=== PATIENT | female | born 1955 | race Caucasian/White ===

== ENCOUNTER 2022-02-04 18:30 | Inpatient (IN) | payer MEDICARE, OTHER ==
[~2022-02-04] VITALS: Ht 170.2 cm; Wt 56.8 kg
[2022-02-05 01:31] LABS: EOSINOPHILS % 3.6 % (0.0-5.0); HEMATOCRIT. 33.1 % (36.0-48.0); HEMOGLOBIN. 11.5 g/dL (12.0-16.0); LYMPHOCYTES % 19.9 % (20.0-50.0); MEAN CORPUSCULAR HEMOGLOBIN 31.5 pg (28.0-32.0); MEAN CORPUSCULAR VOLUME 90.7 fL (81.0-99.0); MEAN PLATELET VOLUME 6.6 fl (7.4-10.4); NEUTROPHILS % 70.5 % (40.0-76.0); PLATELET 231 x1000/uL (130-400); RED BLOOD CELL COUNT 3.65 mill/uL (4.2-5.4)
[2022-02-05 01:35] LABS: CHLORIDE 99 mEq/L (98-107)
[2022-02-05 01:39] LABS: INR 1.2; PROTHROMBIN TIME 13.1 sec (9.6-11.0)
[2022-02-05] MEDS ORDERED: POTASSIUM CHLORIDE 20MEQ TABLET SR PO ONE (02:00)
[2022-02-05] MEDS ORDERED: CIPROFLOXACIN 0.3% OPHTH SOLN 2.5ML BOTHEYE STA (04:33)
[2022-02-05 04:48] LABS: CLARITY URINE CLEAR (CLEAR); COLOR URINE YELLOW (YELLOW); KETONES URINE NEGATIVE (NEGATIVE); LEUKOCYTE ESTERASE URINE 2+ (NEGATIVE); NITRITE URINE NEGATIVE (NEGATIVE); OCCULT BLOOD URINE NEGATIVE (NEGATIVE); PROTEIN URINE NEGATIVE (NEGATIVE); SPECIFIC GRAVITY URINE 1.009 (1.005-1.030)
[2022-02-05 08:50] VITALS: BP 136/91
[2022-02-05 12:00] VITALS: BP 128/80
[2022-02-05] MEDS ORDERED: ONDANSETRON HCL 4MG/2ML INJ IV PRN (12:00)
[2022-02-05 12:26] LABS: *AMPHETAMINES SCREEN URINE NEGATIVE (NEGATIVE); *BARBITURATES SCREEN URINE NEGATIVE (NEGATIVE); *BENZODIAZEPINES SCREEN URINE NEGATIVE (NEGATIVE); *COCAINE SCREEN URINE PRESUMTIVE POSITIVE (NEGATIVE); CANNABINOID URINE SCREEN NEGATIVE (NEGATIVE); METHADONE URINE SCREEN NEGATIVE (NEGATIVE); OPIATES URINE SCREEN NEGATIVE (NEGATIVE); PHENCYCLIDINE URINE SCREEN NEGATIVE (NEGATIVE)
[2022-02-05] MEDS: ENOXAPARIN 40MG/0.4ML SYR SUBCUT SCH (12:45)
[2022-02-05 17:00] LABS: HEPATITIS B SURFACE ANTIGEN NEGATIVE
[2022-02-05 20:00] VITALS: BP 130/89
[2022-02-05] MEDS: IPRATROPIUM/ALBUTEROL 0.5-3(2.5)MG/3ML NEB HHN SCH ×2 (20:04→23:25)
[2022-02-05] MEDS: CEFTRIAXONE 1,000 MG in DEXTROSE 5% WATER 50 ML IV SCH (20:41)
[2022-02-06] VITALS: BP 156/89
[2022-02-06 04:00] VITALS: BP 147/84
[2022-02-06] MEDS: IPRATROPIUM/ALBUTEROL 0.5-3(2.5)MG/3ML NEB HHN SCH ×5 (04:00→21:30)
[2022-02-06 06:07] LABS: HIV SCREEN 4G Non Reactive (Non Reactive)
[2022-02-06 08:00] VITALS: BP 103/59
[2022-02-06 08:29] LABS: BASOPHILS % 0.3 % (0.0-2.0); EOSINOPHILS % 0.5 % (0.0-5.0); HEMATOCRIT. 31.5 % (36.0-48.0); HEMOGLOBIN. 10.9 g/dL (12.0-16.0); LYMPHOCYTES % 11.2 % (20.0-50.0); MEAN CORPUSCULAR HEMOGLOBIN 31.4 pg (28.0-32.0); MEAN CORPUSCULAR VOLUME 90.9 fL (81.0-99.0); MEAN PLATELET VOLUME 6.9 fl (7.4-10.4); MONOCYTES % 2.4 % (2.0-8.0); NEUTROPHILS % 85.6 % (40.0-76.0); PLATELET 218 x1000/uL (130-400); RED BLOOD CELL COUNT 3.47 mill/uL (4.2-5.4); RED CELL DISTRIBUTION WIDTH 15.9 % (11.6-14.6)
[2022-02-06 08:40] LABS: CHLORIDE 99 mEq/L (98-107)
[2022-02-06 12:00] VITALS: BP 123/71
[2022-02-06] MEDS: ENOXAPARIN 40MG/0.4ML SYR SUBCUT SCH (13:28)
[2022-02-06 16:00] VITALS: BP 118/84
[2022-02-06] MEDS: CEFTRIAXONE 1,000 MG in DEXTROSE 5% WATER 50 ML IV SCH (18:35)
[2022-02-06 20:00] VITALS: BP 127/89
[2022-02-07] VITALS: BP 104/73
[2022-02-07] MEDS: IPRATROPIUM/ALBUTEROL 0.5-3(2.5)MG/3ML NEB HHN SCH ×6 (01:38→21:19)
[2022-02-07 04:00] VITALS: BP 94/63
[2022-02-07 08:00] VITALS: BP 116/60
[2022-02-07] MEDS: ENOXAPARIN 40MG/0.4ML SYR SUBCUT SCH (11:48)
[2022-02-07 12:00] VITALS: BP 118/79
[2022-02-07 16:00] VITALS: BP 129/87
[2022-02-07] MEDS: CEFTRIAXONE 1,000 MG in DEXTROSE 5% WATER 50 ML IV SCH (17:38)
[2022-02-07 20:00] VITALS: BP 115/59
[2022-02-08] VITALS: BP 114/50
[2022-02-08 04:00] VITALS: BP 115/59
[2022-02-08] MEDS: IPRATROPIUM/ALBUTEROL 0.5-3(2.5)MG/3ML NEB HHN SCH ×6 (04:00→20:00)
[2022-02-08 08:00] VITALS: BP 116/61
[2022-02-08] MEDS: CEFTRIAXONE 2 G in DEXTROSE 5% WATER 50 ML IV SCH (11:00)
[2022-02-08 12:00] VITALS: BP 114/67
[2022-02-08] MEDS: ENOXAPARIN 40MG/0.4ML SYR SUBCUT SCH (12:00)
[2022-02-08] MEDS ORDERED: LIDOCAINE HCL 1% 30ML VIAL (10MG/ML) ONE (14:12)
[2022-02-08 16:00] VITALS: BP 111/65
[2022-02-08 20:00] VITALS: BP 141/83
[2022-02-09] VITALS: BP 140/80
[2022-02-09 04:00] VITALS: BP 138/75
[2022-02-09] MEDS: IPRATROPIUM/ALBUTEROL 0.5-3(2.5)MG/3ML NEB HHN SCH ×4 (04:00→21:18)
[2022-02-09 08:00] VITALS: BP 117/78
[2022-02-09] MEDS: CEFTRIAXONE 2 G in DEXTROSE 5% WATER 50 ML IV SCH (09:03)
[2022-02-09] MEDS: ACETAMINOPHEN 325MG TABLET PO PRN ×2 (09:03→20:37)
[2022-02-09 12:00] VITALS: BP 112/77
[2022-02-09] MEDS: ENOXAPARIN 40MG/0.4ML SYR SUBCUT SCH (12:19)
[2022-02-09 16:00] VITALS: BP 125/89
[2022-02-09 20:00] VITALS: BP 124/87
[2022-02-10] VITALS: BP 115/59
[2022-02-10 04:00] VITALS: BP 117/60
[2022-02-10 04:07] LABS: NEISSERIA GONORRHOEAE NAA Negative (Negative)
[2022-02-10] MEDS: IPRATROPIUM/ALBUTEROL 0.5-3(2.5)MG/3ML NEB HHN SCH ×6 (04:24→21:22)
[2022-02-10 07:03] LABS: BASOPHILS % 1.2 % (0.0-2.0); EOSINOPHILS % 2.2 % (0.0-5.0); HEMATOCRIT. 32.2 % (36.0-48.0); HEMOGLOBIN. 11.3 g/dL (12.0-16.0); LYMPHOCYTES % 29.6 % (20.0-50.0); MEAN CORPUSCULAR HEMOGLOBIN 31.9 pg (28.0-32.0); MEAN CORPUSCULAR VOLUME 90.8 fL (81.0-99.0); MEAN PLATELET VOLUME 7.2 fl (7.4-10.4); MONOCYTES % 9.2 % (2.0-8.0); NEUTROPHILS % 57.8 % (40.0-76.0); PLATELET 176 x1000/uL (130-400); RED BLOOD CELL COUNT 3.55 mill/uL (4.2-5.4)
[2022-02-10 07:18] LABS: CHLORIDE 100 mEq/L (98-107)
[2022-02-10 08:00] VITALS: BP 114/76
[2022-02-10] MEDS: CEFTRIAXONE 2 G in DEXTROSE 5% WATER 50 ML IV SCH (10:16)
[2022-02-10 12:00] VITALS: BP 120/76
[2022-02-10] MEDS: ENOXAPARIN 40MG/0.4ML SYR SUBCUT SCH (15:40)
[2022-02-10 16:00] VITALS: BP 117/76
[2022-02-10 20:44] VITALS: BP 115/86
[2022-02-11 00:21] VITALS: BP 121/76
[2022-02-11] MEDS: IPRATROPIUM/ALBUTEROL 0.5-3(2.5)MG/3ML NEB HHN SCH ×6 (01:53→21:10)
[2022-02-11 04:00] VITALS: BP 117/78
[2022-02-11 08:00] VITALS: BP 118/55
[2022-02-11] MEDS: CEFTRIAXONE 2 G in DEXTROSE 5% WATER 50 ML IV SCH (09:00)
[2022-02-11 12:00] VITALS: BP 121/84
[2022-02-11] MEDS: ENOXAPARIN 40MG/0.4ML SYR SUBCUT SCH (12:00)
[2022-02-11 16:00] VITALS: BP 123/89
[2022-02-11 20:00] VITALS: BP 106/56
[2022-02-11] MEDS: ACETAMINOPHEN 325MG TABLET PO PRN (20:51)
[2022-02-12 04:00] VITALS: BP 105/55
[2022-02-12] MEDS: IPRATROPIUM/ALBUTEROL 0.5-3(2.5)MG/3ML NEB HHN SCH ×6 (04:00→20:33)
[2022-02-12 08:00] VITALS: BP 108/74
[2022-02-12] MEDS: CEFTRIAXONE 2 G in DEXTROSE 5% WATER 50 ML IV SCH (10:21)
[2022-02-12 12:00] VITALS: BP 108/63
[2022-02-12] MEDS: ENOXAPARIN 40MG/0.4ML SYR SUBCUT SCH (13:13)
[2022-02-12 16:00] VITALS: BP 9/56
[2022-02-12] MEDS ORDERED: NALOXONE HCL 0.4MG/ML VIAL IV PRN (16:15)
[2022-02-12] MEDS: HYDROCODONE/ACETAMINOPHEN 5/325MG TABLET PO PRN (16:42)
[2022-02-12 20:00] VITALS: BP 118/98
[2022-02-13] VITALS: BP 120/66
[2022-02-13] MEDS: IPRATROPIUM/ALBUTEROL 0.5-3(2.5)MG/3ML NEB HHN SCH ×6 (00:03→21:41)
[2022-02-13] MEDS: HYDROCODONE/ACETAMINOPHEN 5/325MG TABLET PO PRN ×2 (00:17→19:38)
[2022-02-13 04:00] VITALS: BP 100/66
[2022-02-13 08:00] VITALS: BP 116/83
[2022-02-13] MEDS: CEFTRIAXONE 2 G in DEXTROSE 5% WATER 50 ML IV SCH (08:57)
[2022-02-13] MEDS: ENOXAPARIN 40MG/0.4ML SYR SUBCUT SCH (11:49)
[2022-02-13 12:00] VITALS: BP 94/63
[2022-02-13 16:00] VITALS: BP 110/65
[2022-02-13 20:00] VITALS: BP 118/73
[2022-02-14] VITALS: BP 112/62
[2022-02-14 05:42] VITALS: BP 115/76
[2022-02-14] MEDS: HYDROCODONE/ACETAMINOPHEN 5/325MG TABLET PO PRN ×3 (06:10→21:28)
[2022-02-14 08:00] VITALS: BP 118/68
[2022-02-14] MEDS: IPRATROPIUM/ALBUTEROL 0.5-3(2.5)MG/3ML NEB HHN SCH ×4 (09:00→20:48)
[2022-02-14] MEDS: CEFTRIAXONE 2 G in DEXTROSE 5% WATER 50 ML IV SCH (10:53)
[2022-02-14] MEDS: ENOXAPARIN 40MG/0.4ML SYR SUBCUT SCH (10:54)
[2022-02-14 12:00] VITALS: BP 111/62
[2022-02-14 20:00] VITALS: BP 122/80
[2022-02-14 23:51] VITALS: BP 119/68
[2022-02-15] MEDS: IPRATROPIUM/ALBUTEROL 0.5-3(2.5)MG/3ML NEB HHN SCH ×6 (03:52→21:55)
[2022-02-15 04:00] VITALS: BP 114/76
[2022-02-15 08:00] VITALS: BP 113/74
[2022-02-15] MEDS: CEFTRIAXONE 2 G in DEXTROSE 5% WATER 50 ML IV SCH (10:56)
[2022-02-15] MEDS: ENOXAPARIN 40MG/0.4ML SYR SUBCUT SCH ×2 (10:59→12:11)
[2022-02-15 12:00] VITALS: BP 111/69
[2022-02-15 16:00] VITALS: BP 115/72
[2022-02-15 20:00] VITALS: BP 117/57
[2022-02-16] VITALS: BP 112/67
[2022-02-16] MEDS: IPRATROPIUM/ALBUTEROL 0.5-3(2.5)MG/3ML NEB HHN SCH ×5 (01:03→20:01)
[2022-02-16] MEDS: HYDROCODONE/ACETAMINOPHEN 5/325MG TABLET PO PRN ×3 (02:28→21:59)
[2022-02-16 04:00] VITALS: BP 118/66
[2022-02-16 06:55] LABS: CHLORIDE 99 mEq/L (98-107)
[2022-02-16 08:00] VITALS: BP 122/77
[2022-02-16 12:00] VITALS: BP_SYST 107; BP_SYST 77; BP_DIAS 44; BP_DIAS 55
[2022-02-16] MEDS: CEFTRIAXONE 2 G in DEXTROSE 5% WATER 50 ML IV SCH (12:50)
[2022-02-16 16:00] VITALS: BP 125/80
[2022-02-16 20:00] VITALS: BP 126/79
[2022-02-17] VITALS: BP 104/77
[2022-02-17] MEDS: IPRATROPIUM/ALBUTEROL 0.5-3(2.5)MG/3ML NEB HHN SCH ×5 (00:02→21:16)
[2022-02-17 04:00] VITALS: BP 114/82
[2022-02-17 08:00] VITALS: BP 126/88
[2022-02-17 12:00] VITALS: BP 106/75
[2022-02-17] MEDS: ENOXAPARIN 40MG/0.4ML SYR SUBCUT SCH (12:00)
[2022-02-17] MEDS: CEFTRIAXONE 2 G in DEXTROSE 5% WATER 50 ML IV SCH (13:41)
[2022-02-17 16:00] VITALS: BP 116/82
[2022-02-17 20:00] VITALS: BP 109/73
[2022-02-17] MEDS: ACETAMINOPHEN 325MG TABLET PO PRN (21:09)
[2022-02-18] VITALS: BP 110/74
[2022-02-18] MEDS ORDERED: HYDROCODONE/ACETAMINOPHEN 5/325MG TABLET PO NR (00:30)
[2022-02-18] MEDS: IPRATROPIUM/ALBUTEROL 0.5-3(2.5)MG/3ML NEB HHN SCH ×3 (00:44→22:01)
[2022-02-18 04:00] VITALS: BP 118/76
[2022-02-18 07:40] LABS: BASOPHILS % 1.7 % (0.0-2.0); HEMATOCRIT. 28.7 % (36.0-48.0); LYMPHOCYTES % 22.3 % (20.0-50.0); MEAN CORPUSCULAR HEMOGLOBIN 32.2 pg (28.0-32.0); MEAN CORPUSCULAR VOLUME 92.7 fL (81.0-99.0); MEAN PLATELET VOLUME 7.2 fl (7.4-10.4); MONOCYTES % 11.9 % (2.0-8.0); NEUTROPHILS % 61.1 % (40.0-76.0); PLATELET 234 x1000/uL (130-400); RED BLOOD CELL COUNT 3.09 mill/uL (4.2-5.4); RED CELL DISTRIBUTION WIDTH 15.8 % (11.6-14.6)
[2022-02-18 08:00] VITALS: BP 110/75
[2022-02-18] MEDS: ENOXAPARIN 40MG/0.4ML SYR SUBCUT SCH (11:16)
[2022-02-18] MEDS: HYDROCODONE/ACETAMINOPHEN 5/325MG TABLET PO PRN ×2 (11:17→18:39)
[2022-02-18] MEDS: CEFTRIAXONE 2 G in DEXTROSE 5% WATER 50 ML IV SCH (11:17)
[2022-02-18 12:00] VITALS: BP 116/60
[2022-02-18 16:00] VITALS: BP 119/67
[2022-02-18] MEDS ORDERED: NALOXONE HCL 0.4MG/ML VIAL IV PRN (16:30)
[2022-02-18] MEDS ORDERED: IOHEXOL-350 100 ML BOTTLE ONE (18:45)
[2022-02-18 20:00] VITALS: BP 127/83
[2022-02-19] MEDS: HYDROCODONE/ACETAMINOPHEN 5/325MG TABLET PO PRN ×2 (00:32→06:49)
[2022-02-19] MEDS: IPRATROPIUM/ALBUTEROL 0.5-3(2.5)MG/3ML NEB HHN SCH ×3 (01:28→13:35)
[2022-02-19 12:00] VITALS: BP 109/68
[2022-02-19] MEDS: ENOXAPARIN 40MG/0.4ML SYR SUBCUT SCH (12:54)
[2022-02-19 16:00] VITALS: BP 127/77
[2022-02-19 17:28] VITALS: BP 109/68
== END 2022-02-19 17:45 | disposition home or self-care (01) | DRG 606 ==
LOC: ER 18:30 → 8WST 02-05 03:29 → ENRESERV 02-05 07:16 → 6EST 02-16 17:18
PROVIDERS: ADMIT Internal Medicine; ATTEND Internal Medicine
PROC: 05H533Z Insertion of Infusion Device into Right Subclavian Vein, Percutaneous Approach (ICD-10-PCS; principal; 2022-02-08)
PROC: B546ZZA Ultrasonography of Right Subclavian Vein, Guidance (ICD-10-PCS; 2022-02-08)
DX: A51.39 Other secondary syphilis of skin (principal); E43 Unspecified severe protein-calorie malnutrition; E87.1 Hypo-osmolality and hyponatremia; N39.0 Urinary tract infection, site not specified; Z68.1 Body mass index [BMI] 19.9 or less, adult; B19.20 Unspecified viral hepatitis C without hepatic coma; L30.9 Dermatitis, unspecified; D64.9 Anemia, unspecified; E87.6 Hypokalemia; H10.9 Unspecified conjunctivitis; Z20.822 Contact with and (suspected) exposure to COVID-19; J42 Unspecified chronic bronchitis; G43.909 Migraine, unspecified, not intractable, without status migrainosus; F12.90 Cannabis use, unspecified, uncomplicated; F14.10 Cocaine abuse, uncomplicated; Z88.0 Allergy status to penicillin
CPT/HCPCS: 36415; 36573; 70496; 70498; 71045; 80048; 80053; 80305; 81003; 85025; 85651; 86140; 86225; 86592; 86593; 86705; 86709; 86780; 86803; 87340; 87389; 87426; 87491; 87591; 93005; 94640; 94664; 97162; 99285; C1725; C1892; C1893; J0696; J1650; J3490; J7060; Q9967